=== PATIENT | male | born 1945 | race Caucasian/White ===

== ENCOUNTER 2022-12-22 09:56 | Day surgery (SDC) | payer MEDICARE, OTHER ==
[2022-12-21 09:36] VITALS: BMI 28.3
[2022-12-22] MEDS ORDERED: PROPOFOL 40 ML ONE (11:10)
[2022-12-22] MEDS ORDERED: Lidocaine 1% PF 5 ML VIAL ONE (11:10)
[2022-12-22] MEDS ORDERED: Midazolam HCl 2 mg/2 ml Vial ONE (11:30)
== END 2022-12-22 12:30 | disposition home or self-care (01) ==
LOC: EDBD → CSHSDC 09:56
PROVIDERS: ATTEND Internal Medicine Gastroenterology
PROC: 0DBH8ZZ Excision of Cecum, Via Natural or Artificial Opening Endoscopic (ICD-10-PCS; principal; 2022-12-22)
DX: D12.0 Benign neoplasm of cecum (principal); K62.5 Hemorrhage of anus and rectum; K64.8 Other hemorrhoids; K57.30 Diverticulosis of large intestine without perforation or abscess without bleeding; I10 Essential (primary) hypertension; E78.5 Hyperlipidemia, unspecified; Z79.899 Other long term (current) drug therapy
CPT/HCPCS: 88305; J2250; J2704